=== PATIENT | female | born 1975 | race Caucasian/White ===

== ENCOUNTER → 2016-06-27 17:17 | Outpatient (CLI) | payer OTHER ==
[2015-03-22 08:08] VITALS: BMI 30.1
[~2016-06-27 17:17] MED LIST: ADOXA100 MG PO; ANTIBIOTIC; ANTIINFLAMATORY; BACTRIM DS TABL1 TAB PO; BUMEX 1 MG TAB1 MG PO; BUTALB-APAP-CA1 EACH PO; CELEXA10 MG PO; CELEXA20 MG PO; CIPRO500 MG PO; FLAGYL500 MG PO; HEADACHE MED; MUSCLE RELAXER; NAPROSYN500 MG PO; PREVACID30 MG PO; ROBAXIN500 MG PO; SYNTHROID25 MCG PO; ZOFRAN4 MG PO
== END | disposition home or self-care (01) ==
LOC: D.MAMMO 10:15
DX: Z12.31 Encounter for screening mammogram for malignant neoplasm of breast (principal)

== ENCOUNTER → 2016-08-01 09:28 | Outpatient (CLI) | payer SELFPAY ==
[2015-03-22 08:08] VITALS: BMI 30.1
== END | disposition home or self-care (01) ==
LOC: D.MAMMO 09:28
DX: R92.8 Other abnormal and inconclusive findings on diagnostic imaging of breast (principal)

== ENCOUNTER → 2016-09-08 11:14 | Outpatient (CLI) | payer SELFPAY ==
[2015-03-22 08:08] VITALS: BMI 30.1
== END | disposition home or self-care (01) ==
LOC: D.MAMMO 11:14
DX: N63 Unspecified lump in breast (principal)

== ENCOUNTER 2016-09-13 23:55 | Emergency (ER) | payer SELFPAY ==
[2015-03-22 08:08] VITALS: BMI 30.1
== END 2016-09-14 01:50 | disposition home or self-care (01) ==
LOC: D.ER 23:55
DX: K21.9 Gastro-esophageal reflux disease without esophagitis (principal); K44.9 Diaphragmatic hernia without obstruction or gangrene; A69.20 Lyme disease, unspecified

== ENCOUNTER 2016-10-23 05:30 | Day surgery (SDC) | payer SELFPAY ==
[~2016-10-23] VITALS: Ht 170.2 cm; Wt 90.7 kg
[~2016-10-23 05:30] MED LIST changes: +CIMETIDINE 400 MG
[2016-10-23 06:25] VITALS: BP 118/80; Ht 170.2 cm; Wt 90.7 kg
[2016-10-23 07:21] LABS: HEMATOCRIT 49.1 % (36.0-48.0); HEMOGLOBIN 13.6 g/dL (12-16); MCH 28.6 pg (26.0-34.0); MCHC 27.7 g/dL (31.0-37.0); MCV 103.2 fL (80.0-100.0); MEAN PLATELET VOLUME 13.1 fL (7.4-10.4); RBC 4.76 10x6/uL (4.00-5.40); RDW 16.1 % (11.5-14.5); WBC 7.2 10x3/uL (4.8-10.8)
[2016-10-23] MEDS ORDERED: HYDROCODON-ACE1 EAC7 PO (10:10)
--- NOTE | 2016-10-23 13:36 | OP ---
PATIENT NAME: YNES DENSON MEDICAL RECORD: [id number] :73 LOCATION:[facility] ADMISSION DATE: SURGEON: NICHOLE JALLOH MD DATE OF OPERATION: 10/23/2016 SURGEON: Nichole Jalloh MD. PREOPERATIVE DIAGNOSIS: Right-sided mammographic right breast mass. POSTOPERATIVE DIAGNOSIS: Right-sided mammographic right breast mass. PROCEDURE PERFORMED: Excisional biopsy of right breast mass with preoperative needle localization. ANESTHESIA: General. COMPLICATIONS: None. SPECIMENS: Right breast mass, 5 x 3 x 3 cm. COMPLICATIONS: None. Case was clean. ESTIMATED BLOOD LOSS: 20 cc. OPERATIVE COURSE: After consent was obtained, the patient was taken to the operating room and placed in the supine position on the operating table. General anesthesia was given. Timeout was taken to confirm the correct patient and procedure. The right breast was prepped and draped in typical sterile fashion. A 20 cc of local anesthetic were injected. An elliptical incision was made 3 cm x 1 cm to encompass the needle. Dissection continued with Metzenbaum scissors until the specimen was circumferentially dissected with the wire in place. With the specimen extracted, it was placed into a radiographic plate and sent to the breast center for mammographic confirmation. The wound bed was copiously irrigated and suctioned. Hemostasis was obtained with electrocautery. Several metallic clips were placed at the biopsy site for future radiographic monitoring. The left breast was closed in 3 layers. The deep subQ tissue was closed in 3-0 Vicryl, superficial subQ was closed with 3-0 Vicryl. The skin was closed with 4-0 Monocryl, Mastisol and Steri-Strips. At the end of the case, all needle and instrument counts were correct. No complications occurred. The patient was extubated and transferred to the PACU in stable condition. TRANSINT:[id number] Voice Confirmation ID: [id number] DOCUMENT ID: [id number] NICHOLE JALLOH MD at 1336 CC: [id number] DICTATION DATE: 10/23/16 1009 BUTTER MAKER: 10/23/16 [id number] [place] [address]
== END 2016-10-23 13:35 | disposition home or self-care (01) ==
LOC: D.OPS 05:30 → D.MAMMO 07:30 → D.PAN 07:30 → D.OPS 07:30
PROVIDERS: Anesthesiology
DX: N60.11 Diffuse cystic mastopathy of right breast (principal); N60.91 Unspecified benign mammary dysplasia of right breast; R92.0 Mammographic microcalcification found on diagnostic imaging of breast

== ENCOUNTER → 2017-10-11 16:44 | Outpatient (CLI) | payer OTHER ==
[2016-10-23 06:25] VITALS: BMI 31.4
[~2017-10-11 16:44] MED LIST changes: +HYDROCODON-ACE1 EAC7 PO
== END | disposition home or self-care (01) ==
LOC: D.MAMMO 09:30
DX: R92.8 Other abnormal and inconclusive findings on diagnostic imaging of breast (principal)

== ENCOUNTER 2019-02-17 08:00 | Outpatient (CLI) | payer BC, OTHER ==
[2016-10-23 06:25] VITALS: BMI 31.4
== END 2019-02-17 23:59 | disposition home or self-care (01) ==
LOC: D.MAMMO 08:00
PROVIDERS: ATTEND Clinical Nurse Specialist Adult Health
DX: Z12.31 Encounter for screening mammogram for malignant neoplasm of breast (principal)

== ENCOUNTER 2019-03-10 08:00 | Outpatient (CLI) | payer BC, OTHER ==
[2016-10-23 06:25] VITALS: BMI 31.4
== END 2019-03-10 23:59 | disposition home or self-care (01) ==
LOC: D.MAMMO 08:00
PROVIDERS: ATTEND Clinical Nurse Specialist Adult Health
DX: R92.8 Other abnormal and inconclusive findings on diagnostic imaging of breast (principal)